=== PATIENT | male | born 1960 | race Caucasian/White ===

== ENCOUNTER → 2017-11-02 | Outpatient (CLI) | payer BC, OTHER | LOC: M RAD 13:42 | DX: M19.072 Primary osteoarthritis, left ankle and foot (principal) | CPT/HCPCS: 73700 ==

== ENCOUNTER 2018-04-04 06:02 | Day surgery (SDC) | payer BC, OTHER ==
[2018-04-04] MEDS ORDERED: LIDOCAINE 1% MDV 20ML VIAL (06:03)
[2018-04-04] MEDS ORDERED: ROPIvacaine 0.5% 30 ML INJECTION (J2795 PER 1MG) (06:03)
[2018-04-04] MEDS ORDERED: dexameTHASONE 10 MG/1 ML VIAL PRES.FREE (J1100) (06:03)
[2018-04-04] MEDS: LR 1,000 ML IV ×4 (06:35→16:56)
[2018-04-04] MEDS ORDERED: MIDAZOLAM INJ 2 MG/2 ML VIAL (J2250) As Ordered ×2 (06:51→07:21)
[2018-04-04] MEDS ORDERED: fentaNYL 100 MCG/2 ML INJECTION (J3010) As Ordered (06:51)
[2018-04-04] MEDS ORDERED: SCOPOLAMINE 1MG TRANSDERMAL PATCH As Ordered (07:11)
[2018-04-04] MEDS ORDERED: ROCURONIUM BROMIDE 50 MG/5 ML VIAL As Ordered ×2 (07:20→08:50)
[2018-04-04] MEDS ORDERED: PROPOFOL 200 MG/20 ML VIAL As Ordered (07:21)
[2018-04-04] MEDS ORDERED: LIDOCAINE 2% INJ 100 MG/5 ML SDV (FOR ANES.) As Ordered (07:21)
[2018-04-04] MEDS ORDERED: fentaNYL 250 MCG/5 ML INJECTION (J3010) As Ordered (07:21)
[2018-04-04] MEDS: fentaNYL 100 MCG/2 ML INJECTION (J3010) IV (07:24)
[2018-04-04] MEDS: MIDAZOLAM INJ 2 MG/2 ML VIAL (J2250) IV (07:24)
[2018-04-04] MEDS ORDERED: PHENYLephrine HCL 500 MCG/5 ML (100MCG/ML) SYRINGE (J2370) As Ordered (08:09)
[2018-04-04] MEDS ORDERED: dexameTHASONE 4 MG/ML 1ML VIAL (J1100) As Ordered (08:10)
[2018-04-04] MEDS ORDERED: MIDAZOLAM INJ 2 MG/2 ML VIAL (J2250) IV (08:45)
[2018-04-04] MEDS ORDERED: SEVOFLURANE INHAL SOLN 250 ML BTL As Ordered (08:46)
[2018-04-04] MEDS ORDERED: NEOSTIGMINE 10 MG/10 ML VIAL (J2710) As Ordered (09:38)
[2018-04-04] MEDS ORDERED: GLYCOPYRROLATE INJ 0.2 MG/ML 2 ML VIAL As Ordered (09:38)
[2018-04-04] MEDS ORDERED: ONDANSETRON 4MG/2ML VIAL (J2405) As Ordered (09:38)
[2018-04-04] MEDS ORDERED: KETOROLAC 60 MG/2 ML VIAL (J1885) As Ordered (09:39)
[2018-04-04] MEDS ORDERED: HYDROmorphone HCL 2 MG/ML 1ML VIAL (J1170) As Ordered (09:39)
[2018-04-04] MEDS: ceFAZolin 2 GM/D5W 50 ML IV BAG (J0690 PER 500MG) As Ordered (12:14)
[2018-04-04] MEDS ORDERED: PERCOCET 5MG/325MG TAB PO ×2 (14:30→15:45)
[2018-04-04] MEDS ORDERED: MORPHINE 4 MG/ML 1ML VIAL/SYRINGE (J2270) IV (14:30)
[2018-04-04] MEDS ORDERED: oxyCODONE 5MG TAB PO (14:30)
[2018-04-04] MEDS ORDERED: HYDROMORPHONE HCL 0.5 MG/ 0.5 ML SYRINGE (J1170 PER 1) IV ×2 (14:30→15:45)
[2018-04-04] MEDS ORDERED: fentaNYL 100 MCG/2 ML INJECTION (J3010) IV ×2 (14:30→15:45)
[2018-04-04] MEDS ORDERED: ONDANSETRON 4MG/2ML VIAL (J2405) IV ×2 (14:30→15:45)
[2018-04-04] MEDS: SCOPOLAMINE 1MG TRANSDERMAL PATCH TOP (16:19)
[2018-04-04] MEDS ORDERED: FLEET ENEMA PR (16:45)
[2018-04-04] MEDS: ACETAMINOPHEN 500 MG TAB PO ×2 (16:57→22:10)
[2018-04-04] MEDS: oxyCODONE 5MG TAB PO (19:59)
[2018-04-05] MEDS: LR 1,000 ML IV (00:15)
[2018-04-05] MEDS: ACETAMINOPHEN 500 MG TAB PO ×2 (05:21→14:21)
[2018-04-05 06:36] LABS: HEMATOCRIT 40.9 % (42.0-52.0); HEMOGLOBIN 13.7 g/dl (13.5-17.5); MEAN CORPUSCULAR HEMOGLOBIN 31.2 pg (27.0-33.0); MEAN CORPUSCULAR HGB CONC 33.5 g/dl (32.0-36.5); MEAN CORPUSCULAR VOLUME 93.2 fl (80.0-96.0); PLATELET COUNT, AUTOMATED 171 10^3/uL (150-450); RED BLOOD COUNT 4.39 10^6/uL (4.30-6.10); RED CELL DISTRIBUTION WIDTH 11.9 % (11.5-14.5); WHITE BLOOD COUNT 13.5 10^3/uL (4.0-10.0)
[2018-04-05 07:00] LABS: ANION GAP 6 MEQ/L (8-16); BLOOD UREA NITROGEN 18 MG/DL (7-18); CALCIUM LEVEL 8.9 MG/DL (8.5-10.1); CARBON DIOXIDE LEVEL 28 MEQ/L (21-32); CHLORIDE LEVEL 106 MEQ/L (98-107); CREATININE FOR GFR 0.99 MG/DL (0.70-1.30); GLOMERULAR FILTRATION RATE > 60.0 (>56); GLUCOSE, FASTING 137 MG/DL (70-100); SODIUM LEVEL 140 MEQ/L (136-145)
[2018-04-05] MEDS: ASPIRIN 81 MG ENTERIC TAB PO (08:34)
[2018-04-05] MEDS: oxyCODONE 5MG TAB PO ×2 (08:35→17:36)
[2018-04-05] MEDS: OMEPRAZOLE 20 MG CAP PO (10:27)
== END 2018-04-05 17:50 | disposition home or self-care (01) ==
LOC: M SDC 06:02 → M MS5PR 15:00 → M SDC 04-05 17:50
DX: M19.072 Primary osteoarthritis, left ankle and foot (principal); I10 Essential (primary) hypertension; K21.9 Gastro-esophageal reflux disease without esophagitis; R06.83 Snoring; Z79.899 Other long term (current) drug therapy; Z96.641 Presence of right artificial hip joint
CPT/HCPCS: 27870